=== PATIENT | female | born 1960 | race Caucasian/White ===

== ENCOUNTER → 2018-02-04 | Day surgery (SDC) | payer OTHER ==
[~2018-02-04] VITALS: Ht 160 cm; Wt 78.0 kg
[~2018-02-04] MED LIST: ADVIL200 MG PO; ATIVAN0.5 MG PO; CALCIUM 500 MG1 EACH PO; CELEBREX50 MG PO; CIPRO500 M1 PO; IBUPROFEN600 M1 PO; IBUPROFEN800 M1 PO; LEVBID0.375 MG PO; MAGNESIUM400 M1 PO; MEDROL DOSEPAK1 PAC PO; MEDROL4 M2 PO; MOTRIN600 MG PO; OMEPRAZOLE40 M1 PO; PROAIR HFA8.5 GM INH; PROBIOTIC1 EACH PO; VITAMIN B-121000 MC3 PO; ZOFRAN4 M2 PO
--- NOTE | 2018-02-12 12:17 | Operative Report ---
Operative/Inv Procedure Report Surgery Date: 02/04/18 Name of Procedure: D&C hysteroscopy Pre-Operative Diagnosis: Postmenopausal bleeding Post-Operative Diagnosis: Same Estimated Blood Loss: scant Surgeon/Application Design Engineer: Moon Alarcon MD Anesthesia: moderate sedation Operative/Procedure Note Note: Procedure note patient was taken the operating room placed on position after adequate anesthesia for surgery placed in dorsal supine position the vagina from dorsal fashion bladder was catheterized sterilely examination under anesthesia performed CO2 tenaculum placed on the Intralipid cervix gentle downward traction cervix dilated 20 Hegar to left insertion hysteroscope the scope was inserted atraumatically the scope was removed sharp curettage of the endometrial lining performed sharp curettage in cervical lining was performed 2 specimen sent to pathology for on sponge moved from the vagina patient was returned spine position she was awakened from anesthesia and transferred recovery room awake alert counts correct Findings: Slightly enlarged uterus no adnexal masses
== END ==
LOC: STS 01-28 03:13
DX: N95.0 Postmenopausal bleeding (principal); K21.9 Gastro-esophageal reflux disease without esophagitis
CPT/HCPCS: 81025; 88305